=== PATIENT | female | born 1955 | race Caucasian/White ===

== ENCOUNTER 2016-11-15 21:45 | Emergency (ER) | payer OTHER ==
[~2016-11-15] VITALS: Ht 167.6 cm; Wt 81.8 kg
[~2016-11-15 21:45] MED LIST: CETI10TA PO; ESTR1POW11 MC; FLONASE; OMEP20TA86 PO; [UNRECOGNIZED DRUG - CODE] PO
--- NOTE | 2016-11-15 21:49 | ED.REPORT ---
HPI-Chest Pain 40 and Over Date of Service Nov 15, 2016 ED Provider: Nursing Notes Stated Complaint: ABDOMINAL PAIN Allergies: Coded Allergies: terconazole (Verified Allergy, Intermediate, FEVER,, 04/14/13) Scheduled Cetirizine-Expunged Drug, Do Not Renew! (Cetirizine-Expunged Drug, Do Not Renew! ) 10 Mg Tablet TAB PO DAILY Estradiol Hemihydrt,Micronized (Estradiol) 1 Gm Powder 1 GM MC DAILY Fluticasone-Expunged Drug, Do Not Renew! (Flonase-Expunged Drug, Do Not Renew!) 120 Sprays/16 Gm Aero 2 SPR NA DAILY IN EACH NOSTRIL Omeprazole-Expunged Drug, Do Not Renew! (Omeprazole-Expunged Drug, Do Not Renew! ) 20 Mg Tablet.dr 20 MG PO DAILY Progesterone-Expunged Drug, Do Not Renew! (Prometrium-Expunged Drug, Do Not Renew!) 100 Mg Cap 100 MG PO DAILY General Time Seen by MD: 21:48 Discharge & Departure Referrals: Sis Bustos MD (PCP) Pierre Call MD Nov 15, 2016 21:49
--- NOTE | 2016-11-15 21:57 | ED.REPORT ---
HPI-Abd Pain F 40 and Over Date of Service Nov 15, 2016 ED Provider: Shaka Archuleta DO Pt is a 61 y/o female w/ a hx of GERD presenting to the ED via EMS with multiple vague complaints onset 1500 today. Pt states that she initially felt substernal CP with radiation to the jaw which migrated into some epigastric and suprapubic abdominal discomfort. She experienced SOB, diaphoresis, shaking chills, nausea, intermittent diarrhea, headache. Her CP and abdominal pain was very mild but still caused her some concern. She denies fever, cough, vomiting. She has no CP at time of interview. Nursing Notes Stated Complaint: ABDOMINAL PAIN Nursing Notes Reviewed: Yes Allergies: Coded Allergies: terconazole (Verified Allergy, Intermediate, FEVER,, 04/14/13) Scheduled Cetirizine-Expunged Drug, Do Not Renew! (Cetirizine-Expunged Drug, Do Not Renew! ) 10 Mg Tablet TAB PO DAILY Estradiol Hemihydrt,Micronized (Estradiol) 1 Gm Powder 1 GM MC DAILY Fluticasone-Expunged Drug, Do Not Renew! (Flonase-Expunged Drug, Do Not Renew!) 120 Sprays/16 Gm Aero 2 SPR NA DAILY IN EACH NOSTRIL Omeprazole-Expunged Drug, Do Not Renew! (Omeprazole-Expunged Drug, Do Not Renew! ) 20 Mg Tablet.dr 20 MG PO DAILY Progesterone-Expunged Drug, Do Not Renew! (Prometrium-Expunged Drug, Do Not Renew!) 100 Mg Cap 100 MG PO DAILY General Time Seen by MD: 21:56 Chief Complaint Other (CP and abd pain) Hx Obtained From: Patient, EMS Arrived By: Ambulance Sudden in Onset?: Yes Onset Occurred: 5 - 8 hours ago Symptom Duration: Waxes and wanes Progression since Onset: Waxes and wanes Location: : Epigastric Quality: Aching, Painful Radiation: : Does not radiate Severity: Current: Mild Severity: Maximum: Mild Past Medical History Past Medical History GERD Depression Past Surgical History Appendectomy Ambulatory Status Independent Review of Systems Constitutional: Reports: Chills, Denies: Fever Respiratory: Reports: Shortness of breath, Denies: Non-productive cough Cardiovascular: Reports: Chest pain GI: Reports: Abdominal pain, Diarrhea, Nausea, Denies: Bloody/tarry stool, Vomiting Complete sys rev & neg: except as marked. Skin: Reports Diaphoresis Neurologic: Reports: Headache Physical Exam Vital Signs Vital Signs (First) Date Time Temp Pulse Resp B/P Pulse Ox O2 Delivery O2 Flow Rate FiO2 11/15/16 21:58 36.4 60 16 162/90 100 Room Air Initial VS: Reviewed Head / Eyes: Atraumatic, Normocephalic, PERRL ENT: Mucous membranes moist, Conjunctiva normal, No scleral icterus Neck: Supple, Full range of motion Extremities: Vascular intact, Neuro intact, No swelling, No tenderness Skin: Warm, Dry, No cyanosis Neurologic: Alert, Oriented, Nonfocal Psychiatric: Mood/affect normal, Behavior normal, Normal thought content General/Constitutional: Awake, Alert, No acute distress, Well appearing, Cooperative, Not toxic appearing Respiratory / Chest: Atraumatic, Breath sounds NL, Breath sounds = bilat, No respiratory distress, No rales, No rhonchi, No wheezing, No retractions, No stridor, No chest tenderness, No chest wall deformity, No crepitus Cardiovascular: Heart rate NL, Regular rhythm, Heart sounds NL, No gallop, No murmurs, No rubs, Cap refill not delayed, Peripheral circulation NL Abdomen: Atraumatic, Soft, No guarding, No rebound, No distention, No palpable mass Back: Full range of motion, Painless range of motion, No CVA tenderness Interpretation & Diagnostics Lab Results Interpretation Result Diagram: 11/15/16219911/15/162199 Test 11/15/16 22:00 11/16/16 00:30 White Blood Count 7.3th/mm3 (3.8-10.1) Red Blood Count 5.23mil/mm3 (3.90-5.20) Hemoglobin 15.3g/dL (12.0-15.6) Hematocrit 45.7% (35.0-46.0) Mean Corpuscular Volume 87.4fL (81-100) Mean Corpuscular Hemoglobin 29.3pg (27.0-35.0) Mean Corpuscular Hemoglobin Concent 33.5% (32.0-37.0) Red Cell Distribution Width 12.6% (12.3-15.4) Platelet Count 240bil/L (150-400) Sodium Level 137mEq/L (134-144) Potassium Level 3.5mEq/L (3.5-5.2) Chloride Level 99mEq/L (97-108) Carbon Dioxide Level 21mmol/L (18-29) Blood Urea Nitrogen 19mg/dL (8-27) Creatinine 1.00mg/dL (0.57-1.00) Estimat Glomerular Filtration Rate 81mL/min (>59) Glucose Level 112mg/dL (60-99) Calcium Level 9.6mg/dL (8.5-10.1) Total Bilirubin 0.4mg/dL (0.0-1.2) Aspartate Amino Transf (AST/SGOT) 20U/L (0-50) Alanine Aminotransferase (ALT/SGPT) 19U/L (0-32) Alkaline Phosphatase 76U/L (25-165) Troponin T 0.010ug/L (0.0-0.011) Total Protein 7.2g/dL (6.4-8.4) Albumin 4.2g/dL (3.4-5.0) Urine Color Straw (YELLOW) Urine Appearance Clear (CLEAR,HAZY) Urine pH 6.0 (5.0-8.0) Urine Specific [place] 1.005 (1.003-1.035) Urine Protein Negativemg/dL (NEG,TRACE) Urine Glucose (UA) Negativemg/dL (NEGATIVE) Urine Ketones Tracemg/dL (NEGATIVE) Urine Occult Blood Negative (NEGATIVE) Urine Nitrite Negative (NEGATIVE) Urine Bilirubin Negative (NEGATIVE) Urine Urobilinogen Normalmg/dL (NORMAL) Urine Leukocyte Esterase Negative (NEGATIVE) Urine RBC 0-2/hpf (0-2) Urine WBC 0-5/hpf (0-5) Urine Epithelial Cells Moderate/hpf (NONE-MOD) Urine Crystals None seen (NONE SEEN) Urine Bacteria Few/hpf (NONE-FEW) Urine Hyaline Casts None/lpf (NONE) Urine Granular Casts None seen (NONE SEEN) Urine Waxy Casts None seen (NONE SEEN) Urine Red Blood Cell Casts None seen (NONE SEEN) Urine White Blood Cell Casts None seen (NONE SEEN) Urine Mucus None seen (None Seen) Urine Trichomonas None seen (NONE SEEN) Urine Yeast None (NONE SEEN) Urine Culture Reflexed Not indicated ECG Interpretation Time: 22:23 Interpreted by: ED physician Normal ECG Interpretation: Normal ECG w/ rate of... (69), Normal rate, Normal sinus rhythm, No acute ischemic changes, Normal QRS, Normal axis, Normal intervals, Adequate tracing X-Ray Chest Interpretation View: Portable, 1 view Interpretation / Wet Read by: Wet read ED physician NL X-Ray Chest Findings: No infiltrate, No acute disease Re-Eval/Medical Decision Med Decision/Clinical Course 61-year-old female presents with a multitude of symptoms. She has an unremarkable past medical history except for some depression and GERD. Workup is negative including CBC, CMP, chest x-ray, EKG. Symptoms resolved with fluids and antiemetics. I suspect the patient has a high degree of anxiety contributing to her symptoms. I reassured her that all came back normal and she will follow-up with her regular doctor next week. Re-Evaluation/Progress : Time of Eval: 23:58 Patient Status: Condition improved, Moderate relief Re-Evaluation/Progress Note: Pt rechecked. She is feeling much better. She has no UTI-like symptoms and is unable to provide us with urine as she went during x-ray and did not keep the sample. Informed pt of plan for treatment. Pt understands and agrees with plan for treatment. F/U instructions and RTER warnings given. All questions addressed. Counseled Regarding: Diagnosis, Lab results, Need for follow-up, When/why to return to ED Discharge & Departure Primary Impression: Non-cardiac chest pain Additional Impressions: Headache Headache type: unspecified Headache chronicity pattern: unspecified pattern Intractability: not intractable Qualified Code: R51 - Headache Nausea Abdominal pain Abdominal location: generalized Qualified Code: R10.84 - Generalized abdominal pain Anxiety Disposition: Home Discharge Condition All VS Reviewed: Yes Condition: Stable Additional Instructions: Your labs, chest x-ray, and EKG today were normal. There were no signs of stroke , heart attack, infection, or other dangerous process. Follow-up with your regular doctor next week. Return if you develop new or worsening symptoms Referrals: Sis Bustos MD (PCP) Ger Attestation Portions of this note were transcribed by Wes Hughes. I, Dr. Archuleta personally performed the history, physical exam and medical decision-making; I reviewed and confirmed the accuracy of the information in the transcribed note. Ger Witt, 11/15/16 2239 copies to: Sis Bustos MD, Gary R DO Nov 15, 2016 21:57 WES HUGHES Nov 15, 2016 22:30
[2016-11-15 21:58] VITALS: BP 162/90; PULSE 60; RESP 16; O2SAT 100
[2016-11-15] MEDS ORDERED: 0.9% Sodium Chloride 1,000 ML IV ONE (22:29)
[2016-11-15] MEDS ORDERED: Ondansetron 2 mg/mL 2 mL Inj IVPUSH ONE (22:30)
[2016-11-15 22:37] LABS: Mean Corpuscular Hemoglobin 29.3 pg (27.0-35.0); Mean Corpuscular Volume 87.4 fL (81-100)
[2016-11-15 23:04] LABS: TROPONIN T 0.01 ug/L (0.0-0.011)
[2016-11-16 01:16] LABS: APPEARANCE,URINE CLEAR (CLEAR,HAZY); COLOR,URINE STRAW (YELLOW)
[2016-11-16 01:17] LABS: OCCULT BLOOD,URINE NEGATIVE (NEGATIVE); UROBILINOGEN,URINE NORMAL (NORMAL)
[2016-11-16 02:10] VITALS: BP 136/66; PULSE 72; RESP 16; O2SAT 100
--- NOTE | 2016-11-16 09:01 | DRSVH ---
PROCEDURE: X-RAY CHEST, TWO VIEWS ([id number]) INDICATIONS: chest pain TECHNIQUE: 2 views of the chest were acquired. COMPARISON: [facility], , CHEST 1VW (PORTABLE), 12/01/2008, 11:28. FINDINGS: Surgical changes and devices: None. Lungs and pleura: No pleural effusions or pneumothorax. Lungs are clear. Mediastinum: Mediastinal contours are normal. Heart size is normal. Bones and chest wall: No suspicious bony abnormalities. Soft tissues appear unremarkable. IMPRESSION: No acute cardiopulmonary disease process. Dictated by: Martha Gregory MD, PhD on 11/16/2016 at 8:59 Approved by: Martha Gregory MD, PhD on 11/16/2016 at 8:59
== END 2016-11-16 02:10 | disposition home or self-care (01) ==
LOC: EDBD 21:45 → SED 21:45
DX: R07.89 Other chest pain (principal); R51 Headache; R11.0 Nausea; R10.84 Generalized abdominal pain; F41.9 Anxiety disorder, unspecified; R06.02 Shortness of breath; R61 Generalized hyperhidrosis; K21.9 Gastro-esophageal reflux disease without esophagitis; Z88.8 Allergy status to other drugs, medicaments and biological substances
CPT/HCPCS: 36415; 71020; 80053; 81000; 84484; 85027; 87804; 93005; 96374; 99285; J2405; J7030